=== PATIENT | female | born 1990 | race Caucasian/White ===

== ENCOUNTER 2022-07-18 08:09 | Day surgery (SDC) | payer OTHER ==
[~2022-07-18] VITALS: Ht 182.9 cm; Wt 108.9 kg
[2022-07-18] MEDS ORDERED: IOHEXOL-350 100 ML VIAL IV ONE (10:24)
[2022-07-18] MEDS ORDERED: NITROGLYCERIN 0.4 MG/TAB BOTTLE ONE (10:25)
[2022-07-18] MEDS ORDERED: IV NS 0.9% 250 ML IV ONE (10:25)
[2022-07-18] MEDS ORDERED: ACETAMINOPHEN 325 MG TABLET ONE (10:25)
[2022-07-18] MEDS ORDERED: CT SWABBABLE VALVE TRANS SET 1 EA INFUS.SET MC ONE (10:25)
[2022-07-18] MEDS ORDERED: METOPROLOL TARTRATE INJ 5 MG/5 ML AMPUL ONE ×2 (10:25→10:59)
[2022-07-18] MEDS ORDERED: NITROGLYCERIN 0.4 MG/TAB BOTTLE SL ONE (10:30)
[2022-07-18] MEDS: METOPROLOL TARTRATE INJ 5 MG/5 ML AMPUL IVP PRN ×5 (10:40→11:00)
[2022-07-18 11:02] VITALS: BP 120/79
== END 2022-07-18 11:14 | disposition short-term general hospital (02) ==
LOC: CT 08:09
PROVIDERS: ATTEND Internal Medicine Interventional Cardiology
DX: I65.22 Occlusion and stenosis of left carotid artery (principal); I25.10 Atherosclerotic heart disease of native coronary artery without angina pectoris
CPT/HCPCS: 75574; J3490 ×2; J7050; Q9967